=== PATIENT | female | born 1975 | race Caucasian/White ===

== ENCOUNTER → 2017-01-16 | Outpatient (CLI) | payer BC ==
--- NOTE | 2017-01-16 14:09 | KCIC ---
MR of the left knee Indication: Left knee pain. Pain for one month after injury. Positive anterior drawer test. Technique: The standard multiplanar sequences are obtained. Findings: Medial meniscus:Intact. Lateral meniscus: Intact. Anterior cruciate ligament: Poorly visualized, compatible with rupture. Pivot shift bone injuries with subchondral marrow contusion at the lateral femoral condyle, and posterior lateral tibial plateau Posterior cruciate ligament: Intact Medial collateral ligament: Intact. Iliotibial band: Intact. Posterolateral structures: Fibular collateral ligament, biceps tendon and popliteus tendon are intact. Extensor mechanism: Intact. Fluid: No significant joint effusion. No significant Gonzalez's cyst. Articular cartilage -patellofemoral joint:Intact -medial compartment:Intact -lateral compartment:Intact Bones: No aggressive bone destruction. Soft tissue: Minimal subcutaneous anterior edema. Impression: Anterior cruciate ligament tear with Pivot shift bone injuries. Electronically signed by: Anthony Palacios MD (01/16/2017 2:05 PM) [id number]
== END | disposition home or self-care (01) ==
LOC: KCIC MRI 12:49
PROVIDERS: ATTEND General Practice
DX: S83.512A Sprain of anterior cruciate ligament of left knee, initial encounter (principal); X58.XXXA Exposure to other specified factors, initial encounter; Y93.89 Activity, other specified; Y92.89 Other specified places as the place of occurrence of the external cause; Y99.8 Other external cause status
CPT/HCPCS: 73721